=== PATIENT | female | born 1995 | race Caucasian/White ===

== ENCOUNTER → 2021-04-16 | Outpatient (CLI) | payer SELFPAY ==
[2021-04-20 21:06] LABS: Chlamydia By Nucleic Acid AMP Negative (Negative)
[2021-04-20 23:10] LABS: Gonococcus By Nucleic Acid AMP Negative (Negative)
[2021-04-24 09:06] LABS: HPV APTIMA, High Risk Negative (Negative)
[2021-04-24 09:52] LABS: HPV Reflexed? YES, CHARGE PATIENT
== END | disposition home or self-care (01) ==
LOC: LABSPEC 15:39
PROVIDERS: Referring Provider Nurse Practitioner Women's Health; Visit Provider Nurse Practitioner Women's Health
DX: Z12.4 Encounter for screening for malignant neoplasm of cervix (principal); Z11.3 Encounter for screening for infections with a predominantly sexual mode of transmission
CPT/HCPCS: 87491; 87591; 87624; 88175; G0145

== ENCOUNTER → 2021-04-22 14:02 | Outpatient (CLI) | payer SELFPAY ==
--- NOTE | 2021-04-22 14:21 | US_ITS ---
STUDY: ULTRASOUND TRANSVAGINAL CLINICAL: Female, 25 years old. Pelvic pain TECHNIQUE: Transvaginal COMPARISON: None. FINDINGS: Normal uterine size measuring 8.1 cm in maximal craniocaudal dimension. There are no myometrial masses. Normal endometrial thickness measuring 5.0 mm. There are no endometrial masses, and there is no fluid in the endometrial cavity. Normal uterine cervix. Normal right ovary, measuring 3.8 x 2.4 x 3.3 cm. There are peripheral subcentimeter cyst within the right ovary. Normal left ovary, measuring 3.6 x 2.3 x 2.5 cm. There are peripheral subcentimeter cyst within the left ovary. There is no free fluid in the pelvis. US/Pelvic (Non ) IMPRESSION: Peripherally located subcentimeter ovarian cysts, in the appropriate clinical setting may be secondary to polycystic ovarian disease. Electronically Signed: Reyna Posada MD at 15:48 EST Tel , Service support ,
--- NOTE | 2021-04-22 14:21 | US_ITS ---
STUDY: ULTRASOUND TRANSVAGINAL CLINICAL: Female, 25 years old. Pelvic pain TECHNIQUE: Transvaginal COMPARISON: None. FINDINGS: Normal uterine size measuring 8.1 cm in maximal craniocaudal dimension. There are no myometrial masses. Normal endometrial thickness measuring 5.0 mm. There are no endometrial masses, and there is no fluid in the endometrial cavity. Normal uterine cervix. Normal right ovary, measuring 3.8 x 2.4 x 3.3 cm. There are peripheral subcentimeter cyst within the right ovary. Normal left ovary, measuring 3.6 x 2.3 x 2.5 cm. There are peripheral subcentimeter cyst within the left ovary. There is no free fluid in the pelvis. US/Transvaginal Non- IMPRESSION: Peripherally located subcentimeter ovarian cysts, in the appropriate clinical setting may be secondary to polycystic ovarian disease. Electronically Signed: Reyna Posada MD at 15:48 EST Tel , Service support ,
== END ==
PROVIDERS: Referring Provider Nurse Practitioner Women's Health; Visit Provider Nurse Practitioner Women's Health
DX: N92.6 Irregular menstruation, unspecified (principal); N83.209 Unspecified ovarian cyst, unspecified side; R10.2 Pelvic and perineal pain
CPT/HCPCS: 76830; 76856